=== PATIENT | male | born 1995 | race Caucasian/White ===

== ENCOUNTER 2024-06-26 14:12 | Emergency (ER) | payer OTHER, SELFPAY ==
[2024-06-26] VITALS (11 sets, daily range): BP systolic 103–143; BP diastolic 54–73; PULSE 58–89; RESP 11–19; TEMP 36.7–37.2; O2SAT 98–100
--- NOTE | ~2024-06-26 | CT_ITS ---
EXAMINATION: CT abdomen pelvis w con DATE: 06/26/2024 16:46 INDICATION: Abdominal pain, nausea, vomiting and diarrhea TECHNIQUE: Computed tomography (CT) of the abdomen and pelvis was performed with 100 mL Omnipaque-350 intravenous contrast. Automated exposure control and iterative reconstruction technique were employe d. The dose-length product was 545.67 mGy-cm. COMPARISON: None FINDINGS: Lung bases are clear. Visualized portion of the upper lungs demonstrate mild dependent atelectasis. H eart size is normal. No pericardial or pleural effusion. Cholecystectomy clips the gallbladder fossa. Liver, spleen, pancreas and left kidney and bilateral adrenal glands are normal. 1 cm right renal [address]. Appendix is not visualized and there is a suture line along the tip the cecum likely related to p rior appendectomy. No bowel obstruction. Bladder is normal. No free intraperitoneal gas or fluid. No pathologically enlarged abdominal or pelvic lymphadenopathy. Minimal lumbar levocurvature. Mild likel y physiologic anterior wedging at T10-T12. IMPRESSION: 1. No acute intra-abdominal/pelvic process. Reviewed, dictated and finalized at location A.
--- NOTE | ~2024-06-26 | CT_ITS ---
EXAMINATION: CT brain wo con DATE: 06/26/2024 16:46 INDICATION: Syncope post fall with laceration to the bridge of nose TECHNIQUE: Computed tomography (CT) of the head was performed without intravenous contrast. Sagittal and coronal reconstructions were performed. The mA was adjusted according to patient size. Iterative reconstruction technique was employed. The dose-length product was 681.00 mGy-cm. COMPARISON: None FINDINGS: No fracture. No acute intracranial hemorrhage, acute infarction or abnormal extra axial fluid collect ion. Ventricles are normal and symmetric. No mass/mass effect. The orbits, paranasal sinuses and mast oid air cells are normal. IMPRESSION: 1. Normal head CT. No fracture or acute intracranial process. Reviewed, dictated and finalized at location A.
--- NOTE | 2024-06-26 14:25 | ECG_ITS ---
Test Date: 2024-06-26 14:30:25 Measurements Intervals [place] Rate: 69 P: 57 AR: 145 QRS: 58 QRSD: 101 T: 38 QT: 368 QTc: 396 Interpretive Statements SINUS RHYTHM WITH SINUS ARRHYTHMIA No previous ECG available for comparison Electronically Signed On 06-27-2024 10:14:51 CDT by Kenneth Solo M.D.
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
[2024-06-26] MEDS: SODIUM CHLORIDE 0.9% IV 1,000 ML 999 ML IV CONT ×2 (15:44→16:53)
[2024-06-26] MEDS: ONDANSETRON INJ 4 MG/2 ML VIAL IV PUSH (15:44)
[2024-06-26 15:59] LABS: Basophils Percent Auto 0.4 % (0.2-1.2); Eosinophils Absolute Auto 0.1 K/mm3 (0-0.3); Eosinophils Percent Auto 0.6 % (0-4.4); Hemoglobin 15.3 g/dL (14.0-18.0); Immature Granulocyte Absolute 0.05 K/mm3 (0.00-0.031); Immature Granulocyte Percent A 0.6 % (0-0.5); Lymphocytes Absolute Auto 1.77 K/mm3 (0.9-3.2); Lymphocytes Percent Auto 22.8 % (18.3-44.2); Mean Corpuscular HGB Conc 33.3 g/dl (32-36); Mean Corpuscular Hemoglobin 31.4 pg (26-34); Mean Corpuscular Volume 94.5 fl (80-100); Mean Platelet Volume 12.7 fl (7.4-10.4); Monocytes Absolute Auto 0.8 K/mm3 (0.1-0.6); Monocytes Percent Auto 10.2 % (2.6-8.5); Neutrophils Absolute Auto 5.1 K/mm3 (1.3-6.7); Neutrophils Percent Auto 65.4 % (45.5-73.1); Platelet Count Result 187 k/mm3 (150-375); Red Blood Count 4.87 M/mm3 (4.6-6.20); Red Cell Distribution Width 12.2 % (11.5-14.5); White Blood Count 7.8 K/mm3 (4.5-10.0)
[2024-06-26 16:01] LABS: Add Urine Microscopic? NO; Appearance Urine Clear (Clear); Bilirubin Urine Negative (Negative); Blood Urine Negative (Negative); Color Urine Yellow (Yellow); Glucose Urine UA Negative (Negative); Ketones Urine Negative (Negative); Leukocyte Esterase Ur Negative LEU/UL (Negative); Nitrate Urine Negative (Negative); Protein Urine Negative (Negative); Specific Grav Ur 1.036 (1.001-1.035); Urobilinogen Urine 0.2 mg/dL (<2.0)
[2024-06-26 16:10] LABS: Lactic Acid Reflex 0.8 mmol/L (0.7-2.0)
[2024-06-26 16:12] LABS: Alanine Aminotransferase 26 U/L (6-50); Albumin Level 3.9 g/dL (3.5-5.1); Alkaline Phosphatase 80 U/L (38-126); Anion Gap 8 mmol/L (4-12); Aspartate Amino Transferase 23 U/L (17-59); Bilirubin,Total 0.7 mg/dL (0.2-1.3); Blood Urea Nitrogen 14 mg/dL (9-20); Calcium 8.7 mg/dL (8.4-10.2); Carbon Dioxide 26 mmol/L (22-30); Chloride 104 mmol/L (98-107); Estimated CRCL calculation 112 ml/min; Estimated Glomerular Filt Rate > 60; Glucose 91 mg/dL (65-110); Lipase 50 U/L (23-300); Magnesium 1.9 mg/dL (1.6-2.3); Potassium 3.8 mmol/L (3.4-5.0); Sodium 138 mmol/L (137-145)
[2024-06-26 16:56] LABS: Hepatitis B Surface Antigen Negative (Negative)
[2024-06-26 17:02] LABS: HAV RESULT Negative (Negative); Hepatitis B Core IgM Result Negative (Negative)
[2024-06-26] MEDS: KETOROLAC 15 MG/ML VIAL (*BKC) IV PUSH (17:09)
[2024-06-26] MEDS: SUMAtriptan SUCCINATE 6 MG/0.5 ML VIAL SUB-Q (17:09)
[2024-06-26 17:13] LABS: Hepatitis C Virus Antibody Negative (Negative)
== END 2024-06-26 18:28 | disposition home or self-care (01) ==
PROVIDERS: Physician Assistant; Emergency Provider Emergency Medicine
DX: K52.9 Noninfective gastroenteritis and colitis, unspecified (principal); Z77.111 Contact with and (suspected) exposure to water pollution
CPT/HCPCS: 36415; 70450; 74177; 80053; 80074; 81003; 83605; 83690; 83735; 85025; 93005; 96361; 96372; 96374; 96375; 99284; J1885; J2405; J3030; J7030; Q9967